=== PATIENT | female | born 1930 | race Caucasian/White ===

== ENCOUNTER → 2017-11-08 | Day surgery (SDC) | payer OTHER ==
[2017-11-07 12:03] VITALS: Ht 162.6 cm; Wt 69.5 kg
--- NOTE | 2017-11-07 12:03 | History and Physical: Surg Cnt ---
History & Physical Date Nov 07, 2017. Chief Complaint nose bleeds History of Present Illness The patient is a 87 year old female with complaints of recurrent epistaxis Additional History Hepatic Disease: No Endocrine Disorder: No Kidney Disease: No Hypertension: Yes Heart Disease: No Bleeding Tendencies: Yes Infectious Diseases: No Allergies Coded Allergies: Morphine (Verified Allergy, Unknown, ? REMEMBER, DID NOT AGREE WITH ME, ) Penicillins (Verified Allergy, Unknown, RASH, 11/07/17) Propoxyphene (Verified Allergy, Unknown, NAUSEA/VOMITTING, 11/07/17) Sulfa Antibiotics (Verified Allergy, Unknown, RASH, 11/07/17) Home Medications Scheduled Alprazolam (Xanax), 0.25 MG PO DAILY Aspirin (Aspirin Chewable), 81 MG PO QAM Carvedilol (Coreg), 3.125 MG PO BID Citalopram Hydrobromide (Citalopram Hydrobromide), 1 TAB PO QAM Ergocalciferol (Drisdol), 1 CAP PO WK Hydrochlorothiazide (Hydrochlorothiazide), 1 TAB PO QAM Leflunomide (Arava), 1 TAB PO QAM Lisinopril (Zestril), 20 MG PO QAM Omeprazole (Prilosec), 20 MG PO QAM Prednisone (Prednisone), 5 MG PO QAM Warfarin Sod (Coumadin), 1 TAB PO DAILY [Vitamin B12], 2,500 MCG PO QAM Physical Examination Skin: warm/dry, no rash Eyes: normal inspection, EOMI, sclerae normal ENT: normal ENT inspection, pharynx normal Head: normocephalic, atraumatic Neck: supple, no adenopathy, trachea midline Respiratory/Chest: lungs clear, normal breath sounds, no respiratory distress Cardiovascular: regular rate, rhythm, no edema, no murmur Abdomen / GI: normal bowel sounds, non tender Back: normal inspection Extremities: normal inspection, normal range of motion Neurologic/Psych: no motor/sensory deficits, alert, normal reflexes, oriented x 3 Diagnosis epistaxis Plan of Treatment endoscopic cautery
[~2017-11-08] VITALS: Ht 162.6 cm; Wt 69.5 kg
[~2017-11-08] MED LIST: ALPR0.25 PO; ASPCH81X PO; CARV3.122 PO; CITA20TA4 PO; ERGO50002 PO; HYDR12.55 PO; LACTATED RINGER'S 1000ML 1,000 ML IV SCH; LEFL10TA PO; LIDO 2%/EPINEPHRINE 1:100000 20 ML VIAL INFIL ONE; LIDOCAINE 4% MPF SOAK 5 ML = 1 DOSE TOP ONE; LISI-725 PO; PATIENT'S ALLERGY INFO NEEDS ENTERED SCH; PRED-301 PO; PRLSR20 PO; SODIUM CHLORIDE 0.9% 1000ML 1,000 ML IV SCH; TCMD2 PO; TETRACAINE 4% SOLN TOP SCH; TETRACAINE 4% TOPICAL SOLUTION TOP ONE; VITAMIN B12 PO
--- NOTE | 2017-11-08 12:42 | History & Physical Bridge Note ---
H&P Re-Evaluation Bridge Note: I have examined the patient, reviewed the History & Physical and in the interval since the performance of the History & Physical I have noted the following changes of clinical significance: No changes noted ASA 3
--- NOTE | 2017-11-08 12:43 | Discharge Instructions-SurgCtr ---
Discharge Instructions Date of Service Nov 08, 2017. Visit Reason for Visit: Epistaxis Discharge Discharge Diagnosis / Problem: same Discharge Goals Goal(s): Therapeutic intervention Activity Recommendations Activity Limitations: resume your previous activity Anesthesia . Post Anesthesia Instructions: If you have had General Anesthesia or IV Sedation: * Do not drive today. * Resume driving when surgeon permits. * Do not make important decisions or sign legal documents today. * Call surgeon for: 1. Temperature elevations greater than 101 degrees F. 2. Uncontrollable pain. 3. Excessive bleeding. 4. Persistent nausea and vomiting. 5. Medication intolerance (nausea, vomiting or rash). * For nausea and vomiting use only clear liquids such as: tea, soda, bouillon until nausea subsides, then gradually increase diet as tolerated. * If you have any concerns or questions, call your surgeon's office. If physician is unavailable and it is an emergency, call 911 or go to the nearest emergency room. . Instructions / Follow-Up Instructions / Follow-Up ACTIVITY RECOMMENDATIONS: * Being up and around is good, but no strenuous activity, heavy lifting or physical exertion for one week. * Keep your head elevated 30 degrees when lying down or sleeping. * Do not blow your nose for 48 hours, sniff back instead. * Avoid hot showers. OVER THE COUNTER MEDICATIONS: * You may use Tylenol * Avoid aspirin or aspirin containing products, e.g. as they may increase bleeding. SPECIAL CARE INSTRUCTIONS: * Expect to have bloody drainage from your nose and/or down your throat for one to three days. Change drip pad as needed. * Begin irrigating your nose with saline solution today, at least six to ten times per day and sniff back to help remove old clots or crust. * You may experience nasal and facial congestion, pain and pressure, this is normal. * Please call with any significant and/or progressive pain, redness, swelling around the eyes, visual changes, fever of 101.5 degrees F, active bleeding or any problems or concerns. * If active bleeding occurs, spray the nose three times at one minute intervals with Afrin spray and call or cell phone: . If unable to reach the doctor, go to the nearest Emergency Department. Special Diet: * Avoid extremely hot fluids. FOLLOW UP VISIT: Follow-up Visit with Dr. Roman If not already scheduled, please call to schedule. Diet Recommendations Home Diet: no limitations Pending Studies Studies pending at discharge: no Medical Emergencies . Who to Call and When: Medical Emergencies: If at any time you feel your situation is an emergency, please call 911 immediately. . Non-Emergent Contact Non-Emergency issues call your: Primary Care Provider . . "Provider Documentation" section prepared by Soni Owens. [facility] [place] Drug Monitoring Program Search Results: no issues identified
[2017-11-08] MEDS: EpINEphrine INJ 1MG/ML AMP 1 MG/ML AMP ONE ×2 (13:24→13:27)
[2017-11-08 13:28] VITALS: TEMP 36.8
--- NOTE | 2017-11-08 13:28 | [facility] Post Operative Brief Note ---
Immediate Operative Summary Operative Date Nov 08, 2017. Pre-Operative Diagnosis Epistaxis Post-Operative Diagnosis Same Procedure(s) Performed Endoscopic Cautery Surgeon Dr. wOens Milking Worker Surgeon(s) None Estimated Blood Loss 15 ml Findings Consistent with Post-Op Diagnosis Specimens None Drains None Anesthesia Type Local Complication(s) none Disposition Accompanied Pt To Recover: yes Disposition: Recovery Room / PACU
[2017-11-08 13:55] VITALS: BP 174/82; PULSE 70; O2SAT 97
--- NOTE | 2017-11-08 15:15 | OPERATIVE REPORT ---
DATE OF OPERATION: 11/08/2017 PREOPERATIVE DIAGNOSES: Epistaxis plus septal perforation. POSTOPERATIVE DIAGNOSES: Same. PROCEDURE: Endoscopic cautery. SURGEON: Dr. Owens. ANESTHESIA: Strict local. COMPLICATIONS: None. BLOOD LOSS: 15 mL. HISTORY OF PRESENT ILLNESS: An 87-year-old lady with persistent epistaxis with large septal perforation. 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 DESCRIPTION OF PROCEDURE: The patient brought into the operating room and placed in the supine position. She was draped in the usual sterile manner. Topical anesthesia with cottonoids saturated with a solution of 5 mL of tetracaine mixed with 1 mL of epinephrine was followed by injection with 2% Xylocaine with 1:100,000 strength epinephrine for anesthesia. The 0-degree lens was used and the 8-Japanese suction cautery was used. The bleeding site was rather significant under the right inferior turbinate, which appeared to be shortened and appeared to have scar tissue against the bullae ethmoidalis and also had polypoid change at its anterior superior border against the septum. The bleeding site was identified underneath the curled up middle turbinate, which had to be fractured medially to identify the bleeding site, which was then cauterized using the suction cautery. Another smaller site at the posterior edge of the septal perforation was also cauterized. The patient tolerated the procedure well and was taken to recovery area in satisfactory condition. I attest to the content of the Intraoperative Record and any orders documented therein. Any exception s are noted below.
== END | disposition home or self-care (01) ==
LOC: X.SURG 09:08 → EDBD 10:45
PROVIDERS: ATTEND Otolaryngology
DX: R04.0 Epistaxis (principal); J34.89 Other specified disorders of nose and nasal sinuses; Z88.5 Allergy status to narcotic agent; Z88.0 Allergy status to penicillin; Z88.2 Allergy status to sulfonamides